=== PATIENT | female | born 1960 | race Caucasian/White ===

== ENCOUNTER 2024-06-11 15:47 | Emergency (ER) | payer BC, SELFPAY ==
[2024-06-11 15:53] VITALS: BP 124/87
--- NOTE | 2024-06-11 17:45 | ED.GENMED ---
History of Present Illness
<Deon Whitfield DO, Resident - Last Filed: 06/11/24 19:36>
General
Chief Complaint: DVT/Possible Blood Clot
Source: patient and records
Time Seen by Provider: 06/11/24 17:44
History of Present Illness
History of Present Illness:
63 female past medical history of atrial fibrillation not on Eliquis, asthma, hypertension, recent left knee replacement March 2024 presents from urgent care for reported pain and swelling of left calf for 2 days in duration. Patient reports she
does not take blood thinners as she has low risk for atrial fibrillation. Reports she has pain of the posterior left knee, and there is a tender round object behind her left knee which she reports clicks with flexion. No swelling, no redness of
the left knee is present in the emergency department.
Past History
<Deon Whitfield DO, Resident - Last Filed: 06/11/24 19:36>
Past History
ED Past Medical History: Arrthythmia and Asthma
ED Past Surgical History: Orthopedic
Social History
Tobacco: Former smoker
Alcohol: Occasional
Drug: None
Personal:
Living: with family
Family History
Family History: Other
Review of Systems
<Deon Whitfield DO, Resident - Last Filed: 06/11/24 19:36>
Review of Systems
Constitutional: Reports no symptoms
Respiratory: Reports no symptoms
Cardiac: Reports no symptoms
ABD/GI: Reports no symptoms
Musculoskeletal: Reports joint pain (Left knee pain, posterior)
Phy Exam
<Deon Whitfield DO, Resident - Last Filed: 06/11/24 19:36>
General Physical Exam
General Presentation: well appearing and no apparent distress
Cardiovascular Exam
Cardiovascular Exam: regular rate/rhythm, no edema and no murmur
Pulmonary Exam
Pulmonary Exam: lungs clear, no respiratory distress and no crackles
Gastrointestinal Exam
Gastrointestinal Exam: non tender, soft and non distended
Neurological Exam
Neurological Exam: alert, no motor deficits, no sensory deficits and other (Equal and full strength in lower extremities)
Musculoskeletal Exam
Musculoskeletal Exam: full ROM, neuro vasc intact and other (No redness, no swelling of left lower extremity. round, mobile mass present on posterior midline left knee, patient reports pain with palpation and pain with full extension. Patient has
full range of motion of left knee, neurovascularly intact, full strength in lower extremities)
Course
<Deon Whitfield DO, Resident - Last Filed: 06/11/24 19:36>
Orders/Labs/Results
Orders:
Orders
06/11/24 15:57
US Periph Venous LOWER Ext LT Stat
Comment:
Reason For Exam: pain, swelling behind calf
06/11/24 18:12
Acetaminophen [Tylenol] 650 mg PO NOW STA
06/11/24 18:47
Basic Metabolic Panel Urgent
Complete Blood Count/No Diff Urgent
06/11/24 19:35
Apixaban [Eliquis] 10 mg PO NOW ONE
Abnormal Lab Results
06/11/24
18:47
Potassium 3.4 L mmol/L
(3.5-5.1)
BUN 20 H mg/dl
(7-17)
06/11/24 18:47
06/11/24 18:47
Vital Signs
Initial and Last Documented VS:
Initial Vital Signs
Temp Pulse Resp BP Pulse Ox
97.9 F 110 16 124/87 98
06/11/24 15:53 06/11/24 15:53 06/11/24 15:53 06/11/24 15:53 06/11/24 15:53
Last Documented Vital Signs
Temp Pulse Resp BP Pulse Ox
97.9 F 90 16 124/87 100
06/11/24 15:53 06/11/24 18:02 06/11/24 18:02 06/11/24 15:53 06/11/24 18:02
<Harinder Valle MD - Last Filed: 06/11/24 21:00>
Orders/Labs/Results
Orders:
Orders
06/11/24 15:57
US Periph Venous LOWER Ext LT Stat
Comment:
Reason For Exam: pain, swelling behind calf
06/11/24 18:12
Acetaminophen [Tylenol] 650 mg PO NOW STA
06/11/24 18:47
Basic Metabolic Panel Urgent
Complete Blood Count/No Diff Urgent
06/11/24 19:35
Apixaban [Eliquis] 10 mg PO NOW ONE
Abnormal Lab Results
06/11/24
18:47
Potassium 3.4 L mmol/L
(3.5-5.1)
BUN 20 H mg/dl
(7-17)
06/11/24 18:47
06/11/24 18:47
Vital Signs
Initial and Last Documented VS:
Initial Vital Signs
Temp Pulse Resp BP Pulse Ox
97.9 F 110 16 124/87 98
06/11/24 15:53 06/11/24 15:53 06/11/24 15:53 06/11/24 15:53 06/11/24 15:53
Last Documented Vital Signs
Temp Pulse Resp BP Pulse Ox
97.9 F 90 16 124/87 100
06/11/24 15:53 06/11/24 18:02 06/11/24 18:02 06/11/24 15:53 06/11/24 18:02
<Deon Whitfield DO, Resident - Last Filed: 06/11/24 19:36>
MDM/Problems Addressed
Differential Diagnosis Includes:
Mayorga's cyst, DVT, OA, musculoskeletal strain
MDM/Problems Addressed:
63 female past med history of A-fib not on Eliquis, hypertension with recent left knee replacement presents for reported swelling and redness, was seen in urgent care and told to report to emergency department for an ultrasound
Reports no recent travel, no recent periods of immobility
On exam, patient's left lower extremity is not red, not swollen but she does have a tender, round mass in the posterior medial aspect of the left knee.
Patient has full range of motion to passive and active motion of the left knee, neurovascularly intact, pulses good, no numbness. Patient reports pain is worse with extension
No lower extremity numbness, good pulses
High suspicion for uncomplicated, unruptured Mayorga's cyst
Ultrasound ordered by triage, completed results pending. Low suspicion for DVT
Patient reports she has been taking Motrin for pain, recently took 600 mg at approximately 3:00
Will order one-time dose Tylenol for pain, patient reports 3 out of 10 pain worse with extension
Patient reports she has follow-up with orthopedics in 4 days for right knee injections, encouraged follow-up with them regarding her Mayorga's cyst management
Peripheral vascular ultrasound returned with acute nonocclusive thrombus in the left small saphenous vein in the posterior left calf. Reached out to reading radiologist who confirmed that the clot is not near the junction however it is greater than
5 cm
Patient reports she was stopped on anticoagulation previously as her ablation was successful and she was low risk for returning to atrial fibrillation
She reports she has no contraindications to anticoagulation, no history of GI or intracranial bleed
Will check CBC, BMP
Hematology within normal limits, hemoglobin 13.3, chemistry demonstrates slight hypokalemia 3.4 but no other abnormalities. Creatinine 0.8
Will initiate one-time loading dose 10 mg Eliquis p.o.
Per up-to-date patient meets criteria for requiring 45 days of anticoagulation as thrombus is greater than 5 cm
Will prescribe patient prescription of Eliquis, informed her to take 10 mg twice daily for 7 days, then 5 mg twice daily for the next 38 days. Totaling 45 days of anticoagulation
Pharmacy gave patient Eliquis coupons
Encouraged follow-up with primary care physician for repeat ultrasound in 7 days, encourage follow-up with PCP within the next week for definitive management of anticoagulation and superficial thrombus
Patient reports wanting to call her hearing therapist to inform him of anticoagulation, encouraged phone call
Informed patient not to take NSAIDs while on blood thinners, encouraged Tylenol only use for pain
<Deon Whitfield DO, Resident - Last Filed: 06/11/24 19:36>
*Critical Care Note
Total Time (30-74mins, 75-104mins- exclusive of procedures): Not Applicable
ED Attending Note
<Deon Whitfield DO, Resident - Last Filed: 06/11/24 19:36>
-
Portions of this chart may have been created with voice recognition software.� Occasional wrong word or��sound alike� substitutions may have occurred due to the inherent limitations of voice recognition software.
<Harinder Valle MD - Last Filed: 06/11/24 21:00>
ED Attending Note
Patient seen and examined by attending physician: Yes
I performed a history and physical exam of patient and discussed management with resident, I reviewed resident's note and agree with documented findings and plan of care.: Yes
ED Attending Note:
Nontraumatic pain behind the left knee for days. History of knee replacement surgery. March 2024. No chest pain shortness of breath fever chills or other complaints.
On exam mild tenderness behind the left knee in the popliteal space. No erythema or warmth. No fluctuance. No cord. Thigh is normal. Calf is normal. Motor or sensory neurovascular intact. There is no joint effusion. Well-healing vertical
surgical scar to the anterior knee.
Ultrasound shows extensive nonocclusive superficial saphenous vein thrombosis. Feel this is criteria for short-term anticoagulation. No contraindication. Will start Eliquis 10 twice daily x 1 week followed by 5 twice daily for 45 days. Follow-up
close with primary physician.
Discharge Plan
Departure
Patient Disposition: Home (Routine Discharge)
Date of Disposition: 06/11/24
Time of Disposition: 18:58
Patient with high blood pressure during this ER visit?: Yes
Condition: Good
Discharge Problem:
Mayorga's cyst of knee, Acute superficial venous thrombosis of left lower extremity
Instructions: How to take anticoagulants safely, Superficial vein phlebitis and thrombosis, Deep vein thrombosis (DVT) - ED discharge instructions
Prescriptions:
New
Eliquis 5 mg tablet
5 mg PO BID Qty: 120 0RF
Rx Instructions:
10 mg twice a day for 7 days, afterwards 5 mg twice daily for 38 days
No Action
cetirizine 10 MG tablet
10 mg PO DAILY
citalopram 20 MG tablet
20 mg PO DAILY
omeprazole 20 MG capsule,delayed release(DR/EC)
20 mg PO DAILY
benazepril [Lotensin] 20 MG tablet
20 mg PO DAILY
metoprolol succinate 50 MG tablet extended release 24 hr
50 mg PO BID
apixaban [Eliquis] 5 MG tablet
5 mg PO BID
Referrals:
Robert Bishop MD [Family Provider] - Call in 1-3 days for appt
Activity Restrictions/Additional Instructions:
Please use Eliquis 10 mg by mouth twice a day for 7 days total. After the 7 days please use 5 mg Eliquis by mouth twice a day for 38 days. This will total 45 days of anticoagulation
Please call your primary care in 1 to 3 days to schedule a follow-up appointment. During this appointment please ask for a repeat ultrasound within a week if possible
Please keep your appointment with orthopedic physician, informed them of your left knee Mayorga's cyst, tell them you are symptomatic and ask for any recommendations
Please avoid any NSAIDs, Motrin, ibuprofen, naproxen while on anticoagulation. Please use Tylenol only as needed for pain, do not use more than 4000 mg in 24-hour.
Please return to the emergency department if you notice chest pain, shortness of breath, fever, increased pain, or increased swelling of the leg.
Instructions are attached for DVT management as it is similar to superficial vein thrombosis management, please note you DO NOT have a DVT you have a superficial vein thrombosis.
Interventions
Interventions:
*Risk Screen - Suicide Last Done: 06/11/24 15:53
*General Assessment Last Done: 06/11/24 15:53
*ED COVID-19 Vaccine History Last Done: 06/11/24 15:53
*Nursing Disposition Last Done: 06/11/24 20:00
Discharge Date and Time
Discharge Date/Time: 06/11/24 20:00
Print Language: KOREAN
[2024-06-11] MEDS: TYLENOL 650 MG PO (18:24)
[2024-06-11 18:53] LABS: Hematocrit 38.3 % (37.0-47.0); Hemoglobin 13.3 g/dL (12.0-16.0); Mean Corp Hgb Conc. 34.7 g/dL (33.0-37.0); Mean Corpuscular Hgb 28.2 pg (27.0-31.0); Mean Corpuscular Volume 81.3 fL (81.0-99.0); Mean Platelet Volume 9.4 fL (7.4-10.4); Platelet Count 234 10^3/uL (130-400); Red Blood Cell Count 4.71 10^6/uL (4.20-5.40); Red Cell Dist. Width 11.7 % (11.5-14.5); White Blood Cell Count 7.1 10^3/uL (4.8-10.8)
[2024-06-11 19:31] LABS: Blood Urea Nitrogen 20 mg/dl (7-17); Calcium 9.5 mg/dl (8.4-10.2); Carbon Dioxide 28 mmol/L (22-30); Chloride 100 mmol/L (98-107); Glucose 93 mg/dl (70-99); Potassium 3.4 mmol/L (3.5-5.1); Sodium 140 mmol/L (135-145); eGFR > 60.00
[2024-06-11] MEDS: ELIQUIS 10 MG PO (19:38)
== END 2024-06-11 20:00 | disposition home or self-care (01) ==
LOC: EMR 15:47
PROVIDERS: EMERGENCY PHYSICIAN Emergency Medicine; FAMILY PHYSICIAN Family Medicine
DX: I82.812 Embolism and thrombosis of superficial veins of left lower extremity (principal); M79.662 Pain in left lower leg; M71.22 Synovial cyst of popliteal space [Baker], left knee; I48.91 Unspecified atrial fibrillation; J45.909 Unspecified asthma, uncomplicated; I10 Essential (primary) hypertension; Z96.652 Presence of left artificial knee joint; Z87.891 Personal history of nicotine dependence; Z88.8 Allergy status to other drugs, medicaments and biological substances
CPT/HCPCS: 99284; 80048; 85027; 93971

== ENCOUNTER → 2025-04-14 08:16 | Outpatient (REF) | payer BC, SELFPAY | LOC: RCS 08:16 | PROVIDERS: ATTENDING PHYSICIAN Internal Medicine; FAMILY PHYSICIAN Family Medicine | DX: I48.0 Paroxysmal atrial fibrillation (principal); I49.1 Atrial premature depolarization; I49.3 Ventricular premature depolarization; R00.0 Tachycardia, unspecified | CPT/HCPCS: 93017 ==

== ENCOUNTER → 2025-04-27 09:12 | Outpatient (REF) | payer BC, SELFPAY | LOC: RCS 09:12 | PROVIDERS: ATTENDING PHYSICIAN Internal Medicine; FAMILY PHYSICIAN Family Medicine | DX: I48.0 Paroxysmal atrial fibrillation (principal); I10 Essential (primary) hypertension; I49.1 Atrial premature depolarization; I49.3 Ventricular premature depolarization; R00.0 Tachycardia, unspecified | CPT/HCPCS: 93306 ==